=== PATIENT | male | born 1965 | race Caucasian/White ===

== ENCOUNTER → 2020-10-10 | Outpatient (CLI) | payer OTHER ==
[2020-10-10 12:50] LABS: Basophils # (A) 0.1 k/uL (0-0.2); Basophils % (A) 1 %; Eosinophils # (A) 0.2 k/uL (0-0.7); Eosinophils % (A) 2 %; HCT 42.3 % (39.0-53.0); HGB 14.1 gm/dL (13.0-17.5); Lymphocytes # (A) 2.1 k/uL (1.0-4.8); Lymphocytes % (A) 26 %; MCH 26.2 pg (25.0-35.0); MCHC 33.3 g/dL (31.0-37.0); MCV 78.8 fL (80.0-100.0); Mean Platelet Volume 6.7; Monocytes # (A) 0.5 k/uL (0-1.0); Monocytes % (A) 7 %; Neutrophils % (A) 62 %; Platelet Count 278 k/uL (150-450); RBC 5.38 m/uL (4.30-5.90); RDW 13.3 % (11.5-15.5); WBC 8.1 k/uL (3.8-10.6)
[2020-10-10 13:24] LABS: Potassium 4.2 mmol/L (3.5-5.1)
== END | disposition home or self-care (01) ==
LOC: LABPAT 12:00
PROVIDERS: ATTEND Orthopaedic Surgery
DX: Z01.818 Encounter for other preprocedural examination (principal); M23.91 Unspecified internal derangement of right knee
CPT/HCPCS: 36415; 80051; 85025; 93005

== ENCOUNTER 2020-10-17 06:03 | Day surgery (SDC) | payer OTHER ==
--- NOTE | 2020-10-16 15:43 | HP ---
HISTORY AND PHYSICAL CHIEF COMPLAINT: Right knee pain. 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 He notes medial pain and swelling along with catching and locking. He is having night symptoms. He is having a difficult time with ambulation. He has tried medications in addition to an injection and activity modifications, without much relief. PAST MEDICAL HISTORY: Significant for type 2 diabetes, hypertension, hypothyroidism and obesity. PAST SURGICAL HISTORY: Negative. CURRENT MEDICATIONS: Lisinopril, metformin, Norvasc and Synthroid. ALLERGIES: HE DENIES DRUG ALLERGIES. FAMILY HISTORY: Significant for cancer. SOCIAL HISTORY: Negative for current tobacco or alcohol use. REVIEW OF SYSTEMS: Sixteen-point review of systems otherwise reviewed and is noncontributory. PHYSICAL EXAMINATION: On examination, the patient is approximately 5 feet 8 inches tall, 350 pounds of endomorphic habitus. HEENT exam is nonfocal. NECK: Supple. He has painless passive motion of the right hip. Straight-leg raise is negative. Active motion of the right knee minus 12 to 100 degrees of flexion. He has a large effusion. He is tender about the medial joint line. Collaterals are stable. Palak is negative. Jesus's elicits medial pain. He has genu varum alignment. His distal neurovascular appears intact in the right lower extremity. IMAGING: MRI report from 08/01/2020 shows evidence of a posterior medial meniscal tear along with degenerative changes about the medial compartment. IMPRESSION: 1. Right knee internal derangement with symptomatic medial meniscal tear. 2. Right knee medial compartment osteoarthrosis. RECOMMENDATION: I talked to the patient at length regarding his condition along with treatment options. At this point he remains quite symptomatic with pain and mechanical symptoms despite conservative measures. After thorough discussion, he opted to proceed with surgery. We will plan to proceed with arthroscopic evaluation with probable partial medial meniscectomy. We will likely perform that as an outpatient procedure. Risks and benefits were discussed at length in layman's terms. MMODL / IJN: [id number] /
[2020-10-17] MEDS ORDERED: ONDANSETRON 4 MG/2 ML VIAL ONE ×2 (06:43→08:59)
[2020-10-17] MEDS ORDERED: LACTATED RINGERS 1,000 ML IV ONE (06:46)
[2020-10-17] MEDS ORDERED: DEXAMETHASONE SOD PHOSPHATE 10 MG/ML 1 ML VIAL IV ONE (06:48)
[2020-10-17] MEDS ORDERED: ONDANSETRON 4 MG/2 ML VIAL IVP ONE ×2 (06:48→09:00)
[2020-10-17 06:49] LABS: Glucose,Whole Blood 149 mg/dL (75-99)
[2020-10-17] MEDS ORDERED: MIDAZOLAM 2 MG/2 ML VIAL ONE (06:58)
[2020-10-17] MEDS ORDERED: SUCCINYLCHOLINE CHLORIDE 100 MG/5 ML SYR IV ONE (06:58)
[2020-10-17] MEDS ORDERED: fentaNYL (PF) 50 MCG/ML 2 ML AMP ONE (06:58)
[2020-10-17] MEDS ORDERED: PROPOFOL 10 MG/ML 20 ML VIAL IV ONE (06:58)
[2020-10-17] MEDS ORDERED: KETOROLAC 15 MG/ML 1 ML VIAL ONE (06:58)
[2020-10-17] MEDS ORDERED: LIDOCAINE 1% INJ 10MG/ML (20 ML MDV) ONE (06:58)
[2020-10-17] MEDS ORDERED: HYDROmorphone (PF) 1 MG/ML ONE (06:58)
[2020-10-17] MEDS ORDERED: EPINEPHrine (PF) 1 ML in SODIUM CHLORIDE 0.9% IRRIGATIO 3,000 ML IRRIGATION ONE ×4 (07:00)
[2020-10-17] MEDS ORDERED: ceFAZolin 1,000 MG VIAL IRRIGATION ONE (07:10)
--- NOTE | 2020-10-17 07:55 | P.OP ---
Date of Procedure: 10/17/20 Preoperative Diagnosis: Right knee internal derangement Postoperative Diagnosis: Right knee posterior medial meniscal tear/posterior lateral meniscal tear Procedure(s) Performed: Right knee arthroscopic partial medial meniscectomy/partial lateral meniscectomy Anesthesia: CARRIEA Surgeon: Brannon Gallo Estimated Blood Loss (ml): 10 Pathology: none sent Condition: stable Disposition: PACU Indications for Procedure: The patient's a 54-year-old male who presents with progressive right knee pain and mechanical symptoms after a previous twisting injury despite conservative measures. A discussion of the risks and benefits of operative intervention versus continued conservative measures was made with the patient. He opted to proceed with surgery. Operative risks to include infection, neurovascular injury, development of blood clots, possible incomplete resolution of symptoms, possible worsening symptoms and need for subsequent procedures was discussed. Informed consent was obtained. Operative Findings: As below Description of Procedure: The patient was brought to the operating room, and after induction of general anesthesia examined the right knee. Collaterals were stable, Palak was negative, and posterior drawer was negative. The right lower extremity was prepped and draped in a normal fashion. A superior lateral portal was made through a 3 mm skin incision superior and lateral to the patella. This was used for outflow. A lateral portal was made through a 5 mm vertical skin incision lateral to the patella tendon above the joint line. Diagnostic arthroscopy was performed. On inspection of the medial compartment, a complex oblique tear involving the posterior horn of the medial meniscus was noted in the white-red junction. This was not amenable to repair. This was debrided back to stable base with straight baskets and a motorized shaver. Grade 2 chondral changes were noted diffusely in the medial compartment. On inspection of the notch, the anterior cruciate ligament appeared to be intact. On inspection of the lateral compartment, a horizontal tear involving the middle one third of the lateral meniscus in the white-white junction was noted. This was debrided back to stable base with straight baskets and a motorized shaver. On inspection of the patellofemoral articulation, there were grade 2-3 chondral changes diffusely however no loose chondral fragments.. The gutters were clear debris. The knee was then thoroughly irrigated. The portals were closed with Steri-Strips. A sterile dressing was applied in addition to a compression stocking. The patient was awoken from general anesthesia and transferred to recovery room in good condition. Blood loss was estimated at 10 mL. No complications were incurred.
[2020-10-17 07:57] VITALS: TEMP 97.2
[2020-10-17] MEDS: HYDROmorphone 1 MG/ML 1 ML SYRINGE IVP ONE ×2 (08:03→08:07)
[2020-10-17 09:03] VITALS: RESP 20
[2020-10-17 10:02] VITALS: BP 112/62; PULSE 66
== END 2020-10-17 10:04 | disposition home or self-care (01) ==
LOC: OR 06:03 → MERGE 08:00 → OR 10:04
PROVIDERS: ATTEND Orthopaedic Surgery
DX: S83.241A Other tear of medial meniscus, current injury, right knee, initial encounter (principal); S83.281A Other tear of lateral meniscus, current injury, right knee, initial encounter; M17.11 Unilateral primary osteoarthritis, right knee; E11.9 Type 2 diabetes mellitus without complications; I10 Essential (primary) hypertension; E03.9 Hypothyroidism, unspecified; E66.9 Obesity, unspecified; Z68.43 Body mass index [BMI] 50.0-59.9, adult; Z79.899 Other long term (current) drug therapy; Z79.84 Long term (current) use of oral hypoglycemic drugs; Z79.890 Hormone replacement therapy; Z80.9 Family history of malignant neoplasm, unspecified; X50.1XXA Overexertion from prolonged static or awkward postures, initial encounter
CPT/HCPCS: 29880; J2250; J1100; J2405; J0690; J0171; J2001; J3010; J1170; J1885; J0330; J2704

== ENCOUNTER → 2023-07-01 | Outpatient (CLI) | payer OTHER ==
[2023-07-01 17:20] LABS: African American GFR (CKD) >90 (>60 ml/min/1.73 sqM); Blood Urea Nitrogen 21 mg/dL (9-20); Non-African American GFR(CKD) >90 (>60 ml/min/1.73 sqM)
--- NOTE | 2023-07-05 09:16 | CT ---
EXAMINATION TYPE: CT angio thor/abd pel aorta DATE OF EXAM: 07/01/2023 6:08 PM COMPARISON: HISTORY: family hx of AAA CT DLP: 2297.8 mGycm Automated exposure control for dose reduction was used. TECHNIQUE: Performed without and with IV Contrast, patient injected with 100 mL of Isovue 370. . FINDINGS: There is a 2 mm nodule superior segment right lower lobe axial image 65 series 406 There is a 3 mm nodule right upper lobe image 55 series 406. There is a 3 mm nodules in the right lung apex image 30 series 406 There is no evidence of consolidative pneumonia. No pleural effusion or pneumothorax. Additional 2 mm subpleural nodule right lower lobe image 120. The heart is enlarged. There is shotty adenopathy with no pathologic sized adenopathy. No significant coronary artery atherosclerotic changes. The aorta. Thoracic aorta measures 3.9 cm within the ascending aorta. Abdominal aorta of normal caliber. There is no diagnostic evidence of aneurysm. Due to artifact asses sment for dissection is markedly limited. The pulmonary arteries enhance centrally. There is a small hiatal hernia. Liver and spleen are homogeneous given limitations. Subcentimeter nod ularity left adrenal gland too small to characterize. Pancreas has a normal appearance. Kidneys function symmetrically. No hydronephrosis or nephrolithiasis. Assessment for renal mass nondi agnostic. There is a calcified nodule adjacent to the pericardium on the right image 42. Small fat-containing periumbilical hernia. Small fat-containing bilateral inguinal hernia. Bilateral hip arthropathy with multilevel hypertrophic and degenerative changes spine. No free fluid. No free air. Bowel gas pattern demonstrates no evidence of obstruction. Mild changes of diverticulos is. Liver reduced in attenuation correlate for hepatic steatosis. IMPRESSION: 1. NO EVIDENCE OF ABDOMINAL AORTIC ANEURYSM. THORACIC ASCENDING AORTA MEASURES 3.9 CM BORDERLINE FOR MILD ANEURYSMAL DILATION 2. SMALL HIATAL HERNIA. 3. INDETERMINATE LEFT ADRENAL NODULE DUE TO SMALL SIZE. 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 HEPATIC STEATOSIS 5. SUB-5 MM PULMONARY NODULES TOO SMALL TO CHARACTERIZE RECOMMEND 12 MONTH LOW DOSE SCREENING CT COY Joseph
== END | disposition home or self-care (01) ==
LOC: RADCTMAIN 16:21
PROVIDERS: ATTEND Internal Medicine
DX: I71.21 Aneurysm of the ascending aorta, without rupture (principal); K76.0 Fatty (change of) liver, not elsewhere classified; R91.8 Other nonspecific abnormal finding of lung field; K44.9 Diaphragmatic hernia without obstruction or gangrene
CPT/HCPCS: 82565; 84520; 71275; 36415; 74174; Q9967